=== PATIENT | female | born 1950 | race Caucasian/White ===

== ENCOUNTER 2021-11-24 09:44 | Outpatient (CLI) | payer MEDICARE, SELFPAY ==
--- NOTE | 2021-11-24 09:49 | ECHODONC_ITS ---
Reason For Study: Pre Chemo Procedure This was a 2D Doppler, Color Flow transthoracic echocardiogram. Myocardial strain analysis was performed in this exam to aid in the assessment of cardiac function. Exam performed in department. Left Ventricle Normal LV size. Mild concentric left ventricular hypertrophy. Left ventricular systolic function is normal. Stage 1 diastolic dysfunction. No regional wall motion abnormalities noted. Right Ventricle Normal RV size. Normal systolic function. Atria Normal left atrium. Normal right atrium. Mitral Valve Severe mitral annular calcification with a special extension to the posterior leaflet. Mobile calcified mass noted attached to the annulus. Peak transmitral valve gradient 10 mmHg. Mean transmitral valve gradient 3.7 mmHg. Tricuspid Valve Normal tricuspid valve. Mild tricuspid valve insufficiency. Pulmonary artery systolic pressure is 26 mmHg. Aortic Valve Trisinus/trileaflet aortic valve. Mild focal aortic valve calcification. Peak aortic valve gradient 25 mmHg. Mean aortic valve gradient 14 mmHg. Mild aortic stenosis. Pulmonic Valve Normal pulmonic valve. Great Vessels Normal aortic root. The pulmonary artery is normal size. Normal inferior vena cava. Pericardium/Pleural No pericardial effusion. MMode/2D Measurements & Calculations LVIDd: 3.7 cm IVSd: 1.2 cm LVOT diam: 2.0 cm LVIDs: 2.4 cm LVPWd: 1.3 cm LVOT area: 3.2 cm2 RVDd: 3.4 cm FS: 35.5 % Ao root diam: 2.9 cm LAV(MOD-bp): 74.9 ml LVAd ap4: 28.2 cm2 LAV(MOD-bp) Indexed: 33.5 ml/m2 LVLd ap4: 7.9 cm LAV(MOD-sp2): 91.8 ml EDV(MOD-sp4): 84.9 ml LAV(MOD-sp4): 62.1 ml EDV(sp4-el): 85.6 ml LVAs ap4: 14.7 cm2 LVLs ap4: 6.6 cm ESV(MOD-sp4): 27.8 ml ESV(sp4-el): 27.6 ml EF(MOD-sp4): 67.3 % EF(sp4-el): 67.8 % LVAd ap2: 27.3 cm2 SV(MOD-sp4): 57.2 ml SV(MOD-sp2): 60.4 ml LVLd ap2: 7.4 cm EDV(MOD-sp2): 87.9 ml EDV(sp2-el): 85.5 ml LVAs ap2: 13.8 cm2 LVLs ap2: 5.9 cm ESV(MOD-sp2): 27.5 ml ESV(sp2-el): 27.3 ml EF(MOD-sp2): 68.7 % SV(sp4-el): 58.1 ml LA dimension(2D): 5.3 cm LA A4 area: 20.8 cm2 RA A4 area: 17.2 cm2 Time Measurements MV dec time: 0.30 sec Doppler Measurements & Calculations MV E max rolf: 123.8 cm/sec Lat Peak E' Rolf: 7.6 cm/sec Med Peak E' Rolf: 5.6 cm/sec MV A max rolf: 139.7 cm/sec E/E' lat: 16.3 E/E' med: 22.3 MV E/A: 0.89 MV V2 max: 158.5 cm/sec MV P1/2t max rolf: 139.4 cm/sec Ao V2 max: 252.4 cm/sec MV max P.2 mmHg MV P1/2t: 89.4 msec Ao max P.5 mmHg MV V2 mean: 88.8 cm/sec Ao V2 mean: 178.7 cm/sec MV mean P.7 mmHg MV dec slope: 456.6 cm/sec2 Ao mean P.1 mmHg MV V2 VTI: 53.6 cm MVA(P1/2t): 2.5 cm2 Ao V2 VTI: 62.6 cm MVA(VTI): 1.9 cm2 KAY(I,D): 1.6 cm2 KAY(V,D): 1.5 cm2 LV V1 max: 120.9 cm/sec SV(LVOT): 100.6 ml PA V2 max: 92.5 cm/sec LV V1 max P.9 mmHg LV V1 mean P.0 mmHg LV V1 mean: 81.2 cm/sec LV V1 VTI: 31.1 cm TR max rolf: 238.0 cm/sec TR max P.7 mmHg ECHO/ONC Echo Complete Interpretation Summary Normal LV size. Left ventricular systolic function is normal. Mild concentric left ventricular hypertrophy. Stage 1 diastolic dysfunction. Severe mitral annular calcification with a special extension to the posterior l eaflet. Mobile calcified mass noted attached to the annulus. Mild mitral stenosis noted. Compared to the previous echocardiogram from 2016 t he extent of the mitral annular calcification is worse with the calcified mass more mobile. The global longitudinal strain is normal. The global longitudinal strain = -24.5 % (normal). Ordering Physician: Nils Weeks Referring Physician: Caesar Lane Performed By: Lydia Carrillo, RDCS, RVT
--- NOTE | 2021-11-24 09:54 | RAD_ITS ---
STUDY: X-RAY CHEST REASON FOR EXAM: Female, 71 years old. 3 hemotherapy for breast cancer. Chest drain placed on November 01. Chronic shortness of breath. TECHNIQUE: PA and lateral views of the chest. COMPARISON: None. FINDINGS: There is a catheter in the soft tissues of the right anterior chest wall. The lungs are clear and expanded. There is no demonstrated pleural abnormality. Normal size heart. Normal mediastinum and sanford. Normal visualized pulmonary arteries. There is atherosclerotic tortuosity of the aortic arch and descending thoracic aorta. Normal visualized thoracic spine. Normal visualized ribs, clavicles, and shoulders. There are surgical clips in the left axilla. There is no demonstrated abnormality of the visualized soft tissue structures of the upper abdomen. RAD/Chest PA and Lateral IMPRESSION: No acute cardiopulmonary disease. Electronically Signed: Rusty Doll DO at 23:59 EST ,
== END 2021-11-24 23:59 | disposition home or self-care (01) ==
PROVIDERS: PCP Family Medicine; Referring Provider Internal Medicine Medical Oncology; Visit Provider Internal Medicine Medical Oncology
DX: Z01.818 Encounter for other preprocedural examination (principal); C50.919 Malignant neoplasm of unspecified site of unspecified female breast
CPT/HCPCS: 71046; 93306; 93356